=== PATIENT | female | born 1940 | race Two or more races ===

== ENCOUNTER 2021-02-25 12:55 | Outpatient (CLI) | payer MEDICARE, BC | END 2021-02-25 23:59 | disposition home or self-care (01) | LOC: WOU 12:55 | PROVIDERS: ATTEND Specialist | DX: T79.2XXD Traumatic secondary and recurrent hemorrhage and seroma, subsequent encounter (principal); R60.0 Localized edema | CPT/HCPCS: 29581; A6209 ×2; A6253; G0463 ==